=== PATIENT | female | born 1995 | race Caucasian/White ===

== ENCOUNTER 2018-02-26 12:05 | Emergency (ER) | payer OTHER ==
[~2018-02-26] VITALS: Ht 162.6 cm; Wt 54.8 kg
[2018-02-26 12:25] VITALS: TEMP 37; Ht 162.6 cm; Wt 54.8 kg
[2018-02-26] MEDS ORDERED: RABIES VACCINE (IMOVAX) HUMAN DIPL CELL 2.5 INTER.UNIT/ML SYR IM. ONE (13:00)
--- NOTE | 2018-02-26 13:26 | EMERGENCY ROOM VISIT NOTE ---
ED Visit Note First contact with patient: 12:28 CHIEF COMPLAINT: Rabies prophylaxis HISTORY OF PRESENT ILLNESS: This 22-year-old female patient presents to the emergency department by private vehicle for their third rabies shot. The patient has not had any complications from the previous injections. They deny any other complaints. She has paperwork with her that states initially she had immunoglobulin and RabAvert for her first vaccine, then had Imovax for her second vaccine REVIEW OF SYSTEMS: A 6 system review of systems was completed with positives and pertinent negatives listed in the HPI. ALLERGIES: No known allergies. MEDICATIONS: No current medications. PMH: Unchanged from previous visit. PHYSICAL EXAM: Vital Signs: Reviewed Nurse's notes, vital signs stable. GENERAL : Pleasant and cooperative, in no acute distress, well-developed, well- nourished. HEAD: Atraumatic, without temporal or scalp tenderness. EYES: PERRLA, EOMI, no discharge or injection. SKIN: Normal. NEUROLOGICAL: Alert and cooperative. Sensory and motor functions grossly intact. EMERGENCY DEPARTMENT COURSE: I examined the patient. The patient was given Imovax 1ml IM. The patient was observed for 20 minutes with no reaction. Patient was encouraged to return for her final rabies shot in 1 week. Per up-to -date, since she has had 2 different formulations of the rabies vaccine, she was encouraged to follow-up with her primary care provider to have titers drawn to confirm full immunization, she verbalized understanding. The patient was discharged home in stable condition and ambulatory. Vital Signs Date Time Temp Pulse Resp B/P (MAP) Pulse Ox O2 Delivery O2 Flow Rate FiO2 02/26/18 13:40 70 20 97/49 97 02/26/18 12:25 37.0 79 18 99/62 98 Room Air Medications Administered Medications (Trade) Dose Ordered Sig/Ning Route Start Time Stop Time Status Last Admin Dose Admin Rabies Vaccine Human Diploid Cell (Imovax Rabies) 2.5 interunit ONCE ONCE IM. 02/26/18 13:00 02/26/18 13:01 DC 02/26/18 13:15 2.5 INTERUNIT Departure Information Impression Primary Impression: Encounter for repeat administration of rabies vaccination Dispostion Home / Self-Care Condition GOOD Referrals No Doctor, Assigned (PCP) Patient Instructions My [facility], Rabies Additional Instructions You received your third rabies vaccination today. Continue vaccination schedule as directed. Your next visit should be in 7 days on 03/05/2018. Return for any complications. It is unclear whether the RabAvert and Imovax rabies vaccines are equivalent. We recommend that after you complete your vaccination schedule, that you have follow-up in 2-3 weeks to have titers drawn. [facility] at [facility] or at your primary care provider's office.
[2018-02-26 13:40] VITALS: BP 97/49; PULSE 70; O2SAT 97
== END 2018-02-26 13:40 | disposition home or self-care (01) ==
LOC: C.EDB 12:08 → C.EDD 13:40
DX: Z20.3 Contact with and (suspected) exposure to rabies (principal); Z23 Encounter for immunization

== ENCOUNTER 2018-03-05 09:21 | Emergency (ER) | payer OTHER ==
[~2018-03-05] VITALS: Ht 154.9 cm; Wt 55.0 kg
[2018-03-05 09:29] VITALS: TEMP 37; Ht 154.9 cm; Wt 55.0 kg
--- NOTE | 2018-03-05 09:57 | EMERGENCY ROOM VISIT NOTE ---
ED Visit Note First contact with patient: 09:36 CHIEF COMPLAINT: Rabies shot #4 HISTORY OF PRESENT ILLNESS: Patient is a 22-year-old female who returns to the emergency department as advised for her fourth and final rabies postexposure vaccination. She was potentially exposed to rabies at home in [facility], when she woke up to a bat flying around her room. Rabies prophylaxis was initiated at her home hospital through [facility]. She received her third vaccination here 1 week ago. She denies any complications from the previous injections. They deny any other complaints. She has paperwork with her that states initially she had immunoglobulin and RabAvert for her first vaccine, then had Imovax for her second and third vaccine. REVIEW OF SYSTEMS: A 6 system review of systems was completed with positives and pertinent negatives listed in the HPI. PMH: Electronic medical records are reviewed and summarized as above/below. See Problem List. PHYSICAL EXAM: Vital Signs: Reviewed Nurse's notes, vital signs stable. GENERAL : Well-appearing 22-year-old female who is awake and alert and in no acute distress. HEAD: Atraumatic, without temporal or scalp tenderness. EYES: PERRLA , EOMI, no discharge or injection. SKIN: Normal. NEUROLOGICAL: Alert and cooperative. Sensory and motor functions grossly intact. EMERGENCY DEPARTMENT COURSE: The patient was seen and assessed as above. Her old records were reviewed. The patient was given Imovax 1ml IM. The patient was observed for 20 minutes with no reaction. Patient was encouraged to return return to the emergency department for any problems or concerns. She was encouraged to follow-up with her primary care provider to have titers drawn to confirm full immunity. The patient was discharged home. Allergies Coded Allergies: No Known Allergies (Unverified , 03/05/18) Vital Signs Date Time Temp Pulse Resp B/P (MAP) Pulse Ox O2 Delivery O2 Flow Rate FiO2 03/05/18 10:19 58 16 100/65 100 Room Air 03/05/18 09:29 37.0 61 16 100/57 99 Room Air Medications Administered Medications (Trade) Dose Ordered Sig/Ning Route Start Time Stop Time Status Last Admin Dose Admin Rabies Vaccine Human Diploid Cell (Imovax Rabies) 2.5 interunit ONCE ONCE IM. 03/05/18 10:00 03/05/18 10:01 DC 03/05/18 10:00 2.5 INTERUNIT Departure Information Impression Primary Impression: Rabies, need for prophylactic vaccination against Referrals No Doctor, Assigned (PCP) Patient Instructions My [facility] Additional Instructions Follow up with S or with your family physician when you return home to determine if you need to have a rabies titer checked. Return to the ED as needed.
[2018-03-05] MEDS ORDERED: RABIES VACCINE (IMOVAX) HUMAN DIPL CELL 2.5 INTER.UNIT/ML SYR IM. ONE (10:00)
[2018-03-05 10:19] VITALS: BP 100/65; PULSE 58; O2SAT 100
== END 2018-03-05 10:26 | disposition home or self-care (01) ==
LOC: C.EDB 09:23
DX: Z23 Encounter for immunization (principal); Z20.3 Contact with and (suspected) exposure to rabies